=== PATIENT | female | born 1945 | race Caucasian/White ===

== ENCOUNTER → 2017-04-15 | Outpatient (CLI) | payer OTHER, MEDICARE ==
--- NOTE | 2017-04-15 10:54 | EKG ---
[address] [address] Measurements Intervals [place] Rate: 59 P: 66 [place]: 160 QRS: -17 QRSD: 101 T: 60 QT: 424 QTc: 424 Interpretive Statements SINUS RHYTHM No previous ECG available for comparison Electronically Signed On 04-15-17 16:09:24 MDT by Deacon Manrique [email or web address]
[2017-04-15 11:22] LABS: MEAN CORPUSCULAR VOLUME 89.3 FL (81-99)
[2017-04-15 11:28] LABS: BASOPHILS # (AUTO) 0.14 10*3/UL; EOSINOPHILS # (AUTO) 0.07 10*3/UL; HEMATOCRIT 45.7 % (37.0-47.0); HEMOGLOBIN 15.5 g/dL (12.0-16.0); LYMPHOCYTES # (AUTO) 2.79 10*3/uL; MEAN CORPUSCULAR HEMOGLOBIN 30.3 PG (27-31); MEAN CORPUSCULAR HGB CONC 33.9 g/dL (33-37); MONOCYTES # (AUTO) 0.31 10*3/UL (0.3-0.8); MONOCYTES % (AUTO) 4.4 % (5-15); NEUTROPHILS # (AUTO) 3.69 10*3/UL; NEUTROPHILS % (AUTO) 52.7 % (50-80); PLATELET MORPHOLOGY COMMENT NORMAL MORPHOLOGY (NORM); RBC MORPHOLOGY COMMENT NORMAL MORPHOLOGY (NORM); RED BLOOD COUNT 5.12 10^6/uL (4.20-5.40); WBC MORPHOLOGY COMMENT NORMAL MORPHOLOGY (NORM)
--- NOTE | 2017-04-15 11:31 | DI ---
PA /LATERAL CHEST X-RAY, 04/15/2017 10:38 AM : Clinical History: Status post fall Previous Exam: None at this facility. There is no acute soft tissue or bony abnormality. Heart size is normal. Lungs are clear. Mediastinal structures are normal. There are no pulmonary nodules. IMPRESSION: Normal chest x-ray.
[2017-04-15 11:34] LABS: BLOOD UREA NITROGEN 24 mg/dL (7-22); BUN/CREATININE RATIO 26.66 (6-20); CALCIUM 9.5 mg/dL (8.7-10.7); EST GLOMERULAR FILTRATION > 60 (>60 ml/min/1.73m(2)); LIPASE 117 IU/L (23-300); SERUM ALBUMIN 4.3 g/dL (3.5-4.8)
[2017-04-15 11:46] LABS: CREATINE KINASE MB 1.95 NG/ML (0.00-5.00)
[2017-04-15 11:48] LABS: TROPONIN I < 0.012 ng/mL (< 0.040)
[2017-04-15 11:51] LABS: FREE T4 (FREE THYROXINE) 1.07 ng/dL (0.93-1.71)
== END ==
LOC: MOB RAD 10:40
PROVIDERS: ATTEND Physician Assistant
DX: R42 Dizziness and giddiness (principal); R31.9 Hematuria, unspecified; M79.1 Myalgia; G47.62 Sleep related leg cramps; R11.0 Nausea; W18.30XA Fall on same level, unspecified, initial encounter
CPT/HCPCS: 36415; 71020; 80053; 81002; 82553; 83690; 84439; 84443; 84484; 85025; 87088; 93005; 93010; 99213; G0463

== ENCOUNTER 2017-05-09 12:35 | Emergency (ER) | payer OTHER, MEDICARE ==
[2017-05-09] MEDS ORDERED: MORPHINE SULFATE 2 MG/1 ML IVP ONE (12:53)
[2017-05-09] MEDS ORDERED: NORMAL SALINE 10 ML SYRINGE FLUSH IVP PRN (12:53)
[2017-05-09] MEDS ORDERED: Sodium Chloride 0.9% 1,000 ML PRIMARY IV ONE (12:53)
[2017-05-09] MEDS ORDERED: ETOMIDATE 2 MG/1 ML - 20 ML IVP ONE ×2 (13:05→13:13)
[2017-05-09 13:17] VITALS: TEMP 97.4
[2017-05-09 13:32] VITALS: RESP 14
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
--- NOTE | 2017-05-09 17:25 | DI ---
AP CHEST X-RAY, 05/09/2017 1:21 PM : Clinical History: Fall with shoulder dislocation. Previous Exam: 04/15/2017. There is no acute soft tissue or bony abnormality. No shoulder dislocation is seen on this film. Hear t size is normal. There is no acute infiltrate or effusion. There is a 10 mm nodular density between the anterior aspect of the right first and second ribs in the mid clavicular line. This is presumably an artifact since the examination obtained 3 weeks earlier shows no such lesion. Mediastinal structu res are normal. There are no other pulmonary nodules. Reading: Normal chest x-ray. The 10 mm density in the right apex is felt to represent an artifact.
--- NOTE | 2017-05-09 17:27 | DI ---
LEFT SHOULDER, 05/09/2017 12:53 PM: Clinical History: Injury. The patient fell. Previous Exam: None at this facility. 2 views are submitted. There is an anterior subglenoid dislocation of the humeral head. No fracture i s identified. The left apex and the visualized portions of the left lung are normal. Reading: Anterior dislocation of the shoulder without evidence of a fracture.
--- NOTE | 2017-05-09 17:32 | DI ---
LEFT SHOULDER, 05/09/2017 1:20 PM: Clinical History: Post reduction views following reduction of the dislocated shoulder. Previous Exam: Earlier today at 1307 hours. 2 views are submitted. There is no acute soft tissue, osseous, or joint abnormality. Reading: Normal left shoulder exam following reduction.
== END 2017-05-09 15:00 | disposition home or self-care (01) ==
LOC: ER 12:35
DX: S43.085A Other dislocation of left shoulder joint, initial encounter (principal); S20.212A Contusion of left front wall of thorax, initial encounter; W01.0XXA Fall on same level from slipping, tripping and stumbling without subsequent striking against object, initial encounter
CPT/HCPCS: 23655; 71010; 73030; 96374; 96375; 99282; J2270

== ENCOUNTER 2018-12-29 06:20 | Inpatient (IN) ==
[2018-12-29] MEDS ORDERED: Sodium Chloride 0.9% 1,000 ML PRIMARY IV ONE ×2 (06:27→06:44)
[2018-12-29] MEDS ORDERED: ASPIRIN 81 MG (BABY) CHEWABLE TABLET PO ONE ×2 (06:28→06:44)
[2018-12-29] MEDS ORDERED: ONDANSETRON 4 MG/2 ML VIAL IVP ONE (06:28)
[2018-12-29] MEDS ORDERED: MORPHINE SULFATE 4 MG/1 ML IVP ONE (06:44)
[2018-12-29] MEDS ORDERED: PANTOPRAZOLE IV 40 MG VIAL IVP ONE (06:44)
--- NOTE | 2018-12-29 06:46 | EKG ---
[address] [address] Measurements Intervals [place] Rate: 74 P: -5 [place]: 151 QRS: -2 QRSD: 103 T: 52 QT: 383 QTc: 411 Interpretive Statements SINUS RHYTHM INTERPRETATION BASED ON A DEFAULT AGE OF 40 YEARS Compared to ECG 04/15/2017 10:53:37 No significant changes Electronically Signed On 12-29-18 09:05:43 MST by Kevin Martin MD [id number]
[2018-12-29 06:52] LABS: BASOPHILS # (AUTO) 0.02 10*3/UL; BASOPHILS % (AUTO) 0.2 % (0-1); EOSINOPHILS # (AUTO) 0 10*3/UL; EOSINOPHILS % (AUTO) 0 % (0-8); Hematocrit [HCT] 40.3 % (37.0-47.0); MEAN CORPUSCULAR HEMOGLOBIN 31.3 PG (27-31); MEAN CORPUSCULAR HGB CONC 34.7 g/dL (33-37); MEAN CORPUSCULAR VOLUME 90.2 FL (81-99); MEAN PLATELET VOLUME 10.3 FL (7.4-12.2); MONOCYTES # (AUTO) 0.32 10*3/UL (0.3-0.8); MONOCYTES % (AUTO) 2.6 % (5-15); NEUTROPHILS # (AUTO) 10.99 10*3/UL; NEUTROPHILS % (AUTO) 88.2 % (50-80); RED BLOOD COUNT 4.47 10^6/uL (4.20-5.40)
[2018-12-29 07:04] LABS: BLOOD UREA NITROGEN 20 mg/dL (7-22); LIPASE 67 IU/L (23-300); SERUM ALBUMIN 4.3 g/dL (3.5-4.8)
[2018-12-29 07:07] LABS: PLATELET MORPHOLOGY COMMENT NORMAL MORPHOLOGY (NORM); RBC MORPHOLOGY COMMENT NORMAL MORPHOLOGY (NORM); WBC MORPHOLOGY COMMENT NORMAL MORPHOLOGY (NORM)
--- NOTE | 2018-12-29 08:05 | DI ---
XR CXR 1VW 12/29/2018 6:44 AM HISTORY: [facility] [facility] ^Chest Pain Comparison: 04/15/2017. Findings: A single portable frontal view of the chest is submitted. Images demonstrate normal aeration without focal consolidation. There is no large pneumothorax or ple ural effusion. The cardiomediastinal silhouette is within normal limits for technique. The osseous st ructures are grossly unremarkable. Impression: No radiographic evidence of acute cardiopulmonary disease.
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
--- NOTE | 2018-12-29 09:06 | DI ---
US Abdomen Limited 12/29/2018 7:37 AM History: [facility] [place] [facility] ^right upper and epigastric pain Comparison: None. Procedure: Phillips scale and color doppler right upper quadrant ultrasound. Findings: The liver is normal size with heterogeneously increased echogenicity. Focal fatty sparing i s noted adjacent to the gallbladder. There are no focal lesions visualized. There are multiple mobile echogenic shadowing stones in the gallbladder lumen. There is a normal gallbladder wall measuring 2 mm. No sonographic Acosta's sign is present. The common duct measures 5 mm. There is no intrahepatic biliary ductal dilatation. Imaged portions of the pancreas are grossly unremarkable. The right kidney measures 9.6 cm in length. No hydronephrosis, calculi, or masses are appreciated. There is no free fluid seen within the hepat orenal space. Imaged portions of the aorta and IVC are within normal limits. Impression: 1. Cholelithiasis without sonographic evidence of acute cholecystitis. 2. Hepatic steatosis with focal sparing adjacent to the gallbladder fossa.
[2018-12-29] MEDS ORDERED: CALCIUM CARBONATE 500 MG (TUMS) CHEWABLE TABLET PO PRN (09:36)
[2018-12-29] MEDS ORDERED: ONDANSETRON 4 MG/2 ML VIAL IVP PRN (09:36)
[2018-12-29] MEDS ORDERED: LIDOCAINE W/ SODIUM BICARB 0.5 ML SYR SUBD PRN (09:36)
[2018-12-29] MEDS ORDERED: NITROGLYCERIN 0.4 MG SL TAB (BOTTLE OF 3) SL PRN (09:36)
[2018-12-29] MEDS ORDERED: Influenza 18-19 Vaccine (6mo+) 60 MCG/0.5 ML SYRINGE IM ONE (09:44)
[2018-12-29 10:37] LABS: CHOL/HDL RATIO 3.21 RATIO (0-4.0)
[2018-12-29] MEDS: MORPHINE SULFATE 2 MG/1 ML IV PRN ×3 (11:39→20:48)
--- NOTE | 2018-12-29 13:54 | PDOC ---
HPI - History of Present Illness Date of Service: 12/29/18 Time of Service: 11:00 Chief Complaint: Epigastric pain History of Present Illness: This very pleasant 73-year-old female without prior past history other than remote breast cancer treated with surgical intervention, who comes in accompanied with her today complaining of epigastric pain that started 2 nights ago and has been somewhat constant, unremitting, and associated with nausea and vomiting. She described the pain as epigastric to lower substernal pain. She's never had anything like this happen before. She states it radiates through her back, but does not radiate out to the sides and no shoulder pain. She denies any fevers or chills. She states she started an exercise class II weeks ago. This pain is not associated with activities however. She did not notice any food associations. Her tells me that she's had worsened heartburn over the last 6 months for which he has been taking Tagamet frequently and recently switched to Tums gummy bears. She states that the Tums seems to be working better. She has never had an EGD or colonoscopy. She denies any weight loss, she denies any blood in the stool or black stools or tarry stools. She does not smoke. She does not have a family history of coronary artery disease. She does not have hypertension or hypercholesterolemia or diabetes to her knowledge. She states morphine in the emergency room was only thing that has made her pain better. She was found to have cholelithiasis on ultrasound. There was no evidence of cholecystitis. Past Medical History Medical History: 1. Breast cancer Surgical History: 1. Surgery for breast cancer. 2. Knee replacement Pertinent Family History: Significant for emphysema in her father. Past Social History: Does not smoke or drink alcohol. for 55 years. Has 2 children, described as healthy. Lives here in [place], [place]. Tobacco Use: Never Smoker In the Past 12 Months, Have Used or Abuse Any of the Following Substance: None Alcohol Use: None Medication / Allergies Home Medications: Home Medications 3 Medication Instructions Recorded Confirmed Type NK 12/29/18 12/29/18 History Allergies/Adverse Reactions: Allergies Allergy/AdvReac Type Severity Reaction Status Date / Time codeine Allergy NAUSEA Verified 12/29/18 06:23 Review of Systems - Review of Systems All Systems: Reviewed & No Additional Complaints Except as Stated (I did a 12 point review systems and it was negative other than that discussed below and in the history of present illness.) Exam - Vitals Vital Signs: Vital Signs Temperature 97.5 F Temperature Source Temporal Artery Scan Pulse Rate [Pulse Oximeter] 67 Pulse Rate [Telemetry] 78 Pulse Rate 71 Respiratory Rate 20 Blood Pressure [Right Arm] 141/70 Blood Pressure 106/66 Pulse Ox 93 Oxygen Flow Rate 2 Oxygen Delivery Method Nasal Cannula Height 5 ft 4 in Weight 215 lb 9.6 oz - General General Appearance: No Acute Distress, Cooperative - Head Head Exam: Normal Inspection, Normocephalic, Atraumatic - Eye Eye Exam: POSITIVE: No Scleral Icterus - ENT ENT Exam: POSITIVE: Mucous Membranes Moist - Neck Neck Exam: Normal Inspection, No Tenderness, No Lymphadenopathy, No Thyromegaly, JVP is not Raised - Respiratory Respiratory Exam: POSITIVE: Clear to Auscultation - Bilaterally, Breathing Non Labored, Normal to Percussion and Palpation - Cardiovascular Cardiovascular Exam: POSITIVE: RRR, No Murmur, No Clicks, No Gallops, No Rubs, No JVD - GI/Abdominal GI/Abdominal Exam: POSITIVE: Normal Bowel Sounds, Non Tender, Non Distended, Soft - Rectal Rectal Exam: POSITIVE: Deferred - External Exam: POSITIVE: Deferred Exam: POSITIVE: Deferred - Extremities Extremities Exam: POSITIVE: No Clubbing Present, No Edema Present, No Cyanosis Present - Back Back Exam: POSITIVE: Normal Inspection, No CVA Tenderness - Neurological Neurological Exam: POSITIVE: Alert, Oriented x 3, No Facial Droop, Speech Intact / Clear, Moves All Extremities Equally - Psychiatric Psychiatric Exam: POSITIVE: Normal Affect, Normal Mood - Integumentary Integumentary Exam: POSITIVE: Normal Color, Warm, Dry, Intact Results - Labs CBC and BMP: 12/29/18 06:48 12/29/18 06:48 Additional Lab Results: Laboratory Results 12/29/18 12/29/18 12/29/18 06:48 06:48 06:48 WBC 12.45 H RBC 4.47 Hgb 14.0 Hct 40.3 MCV 90.2 MCH 31.3 H MCHC 34.7 RDW Std Deviation 42.8 RDW Coeff of Korey 13.2 Plt Count 272 MPV 10.3 Immature Gran % (Auto) 0.2 Neut % (Auto) 88.2 H Lymph % (Auto) 8.8 L [place] % (Auto) 2.6 L Eos % (Auto) 0 Baso % (Auto) 0.2 Immature Gran # (Auto) 0.02 Neut # (Auto) 10.99 Lymph # (Auto) 1.10 [place] # (Auto) 0.32 Eos # (Auto) 0 Baso # (Auto) 0.02 WBC Morphology Comment Normal morphology Plt Morphology Comment Normal morphology RBC Morph Comment Normal morphology D-Dimer 1.17 H Sodium 137 Potassium 4.2 Chloride 102 Carbon Dioxide 26 Anion Gap 9 BUN 20 Creatinine 0.8 BUN/Creatinine Ratio 25.00 H Glucose 182 H Calculated Osmolality 291.0 Calcium 10.1 Total Bilirubin 1.3 H AST 33 ALT 38 Alkaline Phosphatase 107 CK-MB (CK-2) Troponin I Total Protein 7.7 Albumin 4.3 Globulin 3.4 Albumin/Globulin Ratio 1.20 L Triglycerides Cholesterol LDL Cholesterol, Calc VLDL Cholesterol HDL Cholesterol Cholesterol/HDL Ratio Amylase 38 Lipase 67 TSH Free T4 12/29/18 12/29/18 12/29/18 06:48 10:00 10:20 WBC RBC Hgb Hct MCV MCH MCHC RDW Std Deviation RDW Coeff of Korey Plt Count MPV Immature Gran % (Auto) Neut % (Auto) Lymph % (Auto) [place] % (Auto) Eos % (Auto) Baso % (Auto) Immature Gran # (Auto) Neut # (Auto) Lymph # (Auto) [place] # (Auto) Eos # (Auto) Baso # (Auto) WBC Morphology Comment Plt Morphology Comment RBC Morph Comment D-Dimer Sodium Potassium Chloride Carbon Dioxide Anion Gap BUN Creatinine BUN/Creatinine Ratio Glucose Calculated Osmolality Calcium Total Bilirubin AST ALT Alkaline Phosphatase CK-MB (CK-2) 1.49 Troponin I < 0.012 Total Protein Albumin Globulin Albumin/Globulin Ratio Triglycerides 62 Cholesterol 148 LDL Cholesterol, Calc 89.600 VLDL Cholesterol 12 HDL Cholesterol 46 Cholesterol/HDL Ratio 3.21 Amylase Lipase TSH 1.64 Free T4 1.31 12/29/18 10:20 WBC RBC Hgb Hct MCV MCH MCHC RDW Std Deviation RDW Coeff of Korey Plt Count MPV Immature Gran % (Auto) Neut % (Auto) Lymph % (Auto) [place] % (Auto) Eos % (Auto) Baso % (Auto) Immature Gran # (Auto) Neut # (Auto) Lymph # (Auto) [place] # (Auto) Eos # (Auto) Baso # (Auto) WBC Morphology Comment Plt Morphology Comment RBC Morph Comment D-Dimer Sodium Potassium Chloride Carbon Dioxide Anion Gap BUN Creatinine BUN/Creatinine Ratio Glucose Calculated Osmolality Calcium Total Bilirubin AST ALT Alkaline Phosphatase CK-MB (CK-2) Troponin I < 0.012 Total Protein Albumin Globulin Albumin/Globulin Ratio Triglycerides Cholesterol LDL Cholesterol, Calc VLDL Cholesterol HDL Cholesterol Cholesterol/HDL Ratio Amylase Lipase TSH Free T4 - EKG Data -: EKG Interpreted by Me - Imaging Status: Image Reviewed by Me (Chest x-ray is negative on my view for acute cardiopulmonary disease process.) Assessment and Plan - Patient Problems (1) Chest pain Current Visit: Yes Status: Acute Code(s): R07.9 - Chest pain, unspecified (2) Dyspepsia Current Visit: Yes Status: Acute Code(s): R10.13 - Epigastric pain (3) Cholelithiasis Current Visit: Yes Status: Acute Code(s): K80.20 - Calculus of gallbladder without cholecystitis without obstruction Qualifiers: Cholelithiasis location: gallbladder Cholecystitis presence: without cholecystitis Biliary obstruction: without biliary obstruction Qualified Code(s): K80.20 - Calculus of gallbladder without cholecystitis without obstruction (4) History of breast cancer Current Visit: No Status: Resolved Code(s): Z85.3 - Personal history of malignant neoplasm of breast - Assessment / Plan Additional Assessment/Plan Details: Plan: 1. Do serial enzymes and repeat EKG as necessary 2. Aspirin daily. Will dose of 81 mg by mouth daily 3. will consider beta gurinder if necessary. Right now I think she has elevated blood pressures without diagnosis of hypertension. 4. I do not think this is acute coronary syndrome, hold off on Lovenox. Patient is ambulatory 5. We'll have the patient do a stress test [chemical]--particularly being overweight with a BMI of 37 and with a prior knee replacement. 6. Proton pump inhibitor may be necessary and the patient would likely develop from future EGD and colonoscopy 5. Nitroglycerin when necessary for chest pain 6. Morphine if necessary via IV 7. Oxygen if necessary 8. I really think the clinical presentation is probably more specific to biliary dyskinesia. That being said, coronary artery disease is often atypical in women and with this being a lower substernal/epigastric pain, this could certainly be an atypical coronary artery disease presentation. I will check for other risk factors such as hypercholesterolemia and diabetes. In addition I will go ahead and try and arrange for further outpatient evaluation of dyspepsia. Unfortunately given gallstones, we will not be able to do a HIDA scan. With the presence of gallstones and dyspepsia symptoms, the patient may make a good candidate for elective cholecystectomy. In the meantime I'll get a CT scan of the abdomen and pelvis with contrast. Reassuring that lipase was negative. No obstructive labs noted. 9. I discussed the above plan with the patient and her and they agreed with the plan.
--- NOTE | 2018-12-29 16:22 | DI ---
CT Abdomen/Pelvis W Contrast 12/29/2018 3:00 PM History: [facility] [place] ^epigastric pain Comparison: Right upper quadrant ultrasound from earlier the same day. Technique: Imaging was performed with a multi-detector CT scanner. Data acquisition was obtained from the dome of the diaphragm through the pubic symphysis without oral contrast and after the uneventful administration of 75 mL of Isovue intravenous contrast material. Multiplanar reformations were perfo rmed. Findings: There are multiple gallstones in the hydropic gallbladder. There is moderate pericholecysti c fluid and fat stranding. Mild enhancement around the gallbladder fossa is noted. The lung bases are notable for bibasilar dependent atelectasis. Heart size is within normal limits wi thout pericardial effusion. There is diffuse hepatic steatosis without focal lesion. There is focal cortical thinning along the p osterior aspect of the interpolar region of the right kidney, a finding that can be seen in the setti ng of remote infection, inflammation, infarct, or trauma. There is normal CT appearance of the adrena l glands, spleen, left kidney, and pancreas. Hollow viscus organs demonstrate normal course and calib er. The appendix is unremarkable. There is colonic diverticulosis without CT evidence of acute divert iculitis. There is mild free pelvic fluid without intraperitoneal free air. No abdominopelvic lymphad enopathy is present. The uterus and adnexa are unremarkable, though better evaluated with pelvic ultr asound. Vascular structures are intact with atheromatous aortoiliac. There is a circumaortic left marla al vein. There is a subcentimeter fat containing umbilical hernia. The osseous structures are within normal limits for the patient's age. Impression: 1. Cholelithiasis with a hydropic gallbladder, as well as moderate pericholecystic fluid and fat stra nding. 2. Diffuse hepatic steatosis. 3. Colonic diverticulosis without CT evidence of acute diverticulitis.
[2018-12-30] MEDS: MORPHINE SULFATE 2 MG/1 ML IV PRN ×2 (04:31→13:49)
[2018-12-30 04:56] LABS: BASOPHILS # (AUTO) 0.03 10*3/UL; BASOPHILS % (AUTO) 0.2 % (0-1); EOSINOPHILS # (AUTO) 0.02 10*3/UL; EOSINOPHILS % (AUTO) 0.1 % (0-8); Hematocrit [HCT] 43.5 % (37.0-47.0); Hemoglobin [HGB] 14.4 g/dL (12.0-16.0); LYMPHOCYTES # (AUTO) 2.12 10*3/uL; MEAN CORPUSCULAR HEMOGLOBIN 29.9 PG (27-31); MEAN CORPUSCULAR HGB CONC 33.1 g/dL (33-37); MEAN CORPUSCULAR VOLUME 90.4 FL (81-99); MEAN PLATELET VOLUME 10.3 FL (7.4-12.2); MONOCYTES % (AUTO) 5.5 % (5-15); NEUTROPHILS # (AUTO) 14.91 10*3/UL; NEUTROPHILS % (AUTO) 82.3 % (50-80); RED BLOOD COUNT 4.81 10^6/uL (4.20-5.40)
[2018-12-30 05:16] LABS: BLOOD UREA NITROGEN 13 mg/dL (7-22); BUN/CREATININE RATIO 16.25 (6-20); SERUM ALBUMIN 3.5 g/dL (3.5-4.8)
[2018-12-30 05:38] LABS: HEMOGLOBIN A1C 5.33 % (4.2-6.0)
[2018-12-30 05:47] LABS: PLATELET MORPHOLOGY COMMENT NORMAL MORPHOLOGY (NORM); RBC MORPHOLOGY COMMENT NORMAL MORPHOLOGY (NORM); WBC MORPHOLOGY COMMENT NORMAL MORPHOLOGY (NORM)
--- NOTE | 2018-12-30 10:07 | STRESSTEST ---
[facility] [place] Interpretive Statements This is a 73 YO female with chest pain, no knonw risk factors. Atypical presentation. ruled out for HI. due to arthritis, weight, inability to run on treadmill, Makenna scan protocol done with resting images yesterday. Resting EKG is NSR to sinus tachycardia with sinus arrhythmia. Non-specific ST and T wave changes in a VL and inferior leads. With stress, occasional PVC. no reproducible symptoms. Plan: stress images later today. radiology to read. risk stratification based on results of stress test. [email or web address]
[2018-12-30 10:59] LABS: LIPASE 28 IU/L (23-300)
[2018-12-30] MEDS ORDERED: Ertapenem Inj 1 GM in Sodium Chloride 0.9% 100 ML IV SCH (11:00)
[2018-12-30] MEDS ORDERED: LIDOCAINE W/ SODIUM BICARB 0.5 ML SYR SUBD PRN (12:09)
[2018-12-30] MEDS ORDERED: Sodium Chloride 0.9% 1,000 ML PRIMARY IV SCH (12:15)
[2018-12-30] MEDS ORDERED: Nasal Sanitizer POPSWAB ampule 3 AMP (Nozin) PREOP DOSE ENOS SCH (12:15)
[2018-12-30] MEDS ORDERED: METOPROLOL TARTRATE 5 MG/5 ML VIAL IVP STA (12:32)
--- NOTE | 2018-12-30 13:32 | CONSULT ---
Consult Note - Consult Consult Date: 12/30/18 Reason for Consult: PreOp Consulation : General Surgery Requesting Physician: Dr. Morris Primary Care Provider: Frederic Beavers MD - History of Present Illness History of Present Illness: The patient is a healthy 73-year-old female I'm asked to see for cholecystitis and cholelithiasis. Patient reports a six-month history of increasing heartburn and indigestion. Approximately 2 days ago she developed significant substernal and epigastric pain which radiated through to her back. This was associated with nausea and vomiting. The pain went away after a couple hours. The day before yesterday it returned after a fatty meal. The pain persisted and she presented to the emergency room. The pain was in her epigastrium, substernal, radiating through to her back. It was thought this might be cardiac and she was admitted to the hospital. Troponins were negative. She is completing a cardiac stress test today. Ultrasound was done yesterday morning which shows a gallbladder with multiple stones. The wall is normal as is the common bile duct at 5 mm. Later in the day she had a CT scan of her abdomen which showed a hydropic gallbladder with thick wall and pericholecystic stranding consistent with acute cholecystitis. Reviewing this with the radiologist he felt she probably had some pericholecystic fluid earlier in the day. Her gallbladder is certainly more distended. Initially her white count was 12,500. Today it was 18,000. Initially her bilirubin was 1.3 and today it is 2.9. Her AST, ALT, alkaline phosphatase, and lipase have been normal. She reports persistent pain. It now radiates down her right side. She has no appetite. She has not vomited since admission to the hospital. She has remained afebrile. She appears icteric to myself and to her . Patient does report some postprandial bloating in the past. She's never had another attack of biliary colic. It is unknown to her whether there is a family history of gallbladder disease. Review of Systems - Gastrointestinal Gastrointestinal / Abdominal: REPORTS: Nausea, Vomiting, Abdominal Pain, Poor Appetite, Bloating, See HPI Past Medical History Medical History: 1. Breast cancer-treated with surgery. No chemotherapy or radiation therapy. Surgical History: 1. Surgery for breast cancer. 2. Knee replacement. 3. Surgery for right ankle fracture. 4. Surgery for fractured left humerus. Pertinent Family History: Significant for emphysema in her father. Past Social History: Does not smoke or drink alcohol. for 55 years. Has 2 children, described as healthy. Lives here in [place], [place]. Tobacco Use: Never Smoker In the Past 12 Months, Have Used or Abuse Any of the Following Substance: None Alcohol Use: None Medication / Allergies Home Medications: Home Medications Medication Instructions Recorded Confirmed Type Cholecalciferol [Vitamin D3] 1 tab PO DAILY 12/30/18 12/30/18 History Ibuprofen 2 - 4 tab PO DAILY PRN 12/30/18 12/30/18 History Multivitamin [Once Daily] 1 tab PO DAILY 12/30/18 12/30/18 History [place]-3 Fatty Acids/Fish Oil [Fish 1 cap PO DAILY 12/30/18 12/30/18 History Oil 1,000 mg Capsule] Allergies/Adverse Reactions: Allergies Allergy/AdvReac Type Severity Reaction Status Date / Time codeine Allergy NAUSEA Verified 12/30/18 06:45 Results - Labs CBC and BMP: 12/30/18 04:41 12/30/18 04:41 - Imaging Status: Image Reviewed by Me (And discussed with the radiologist.), Report Reviewed by Me Exam - Vitals Vital Signs: Vital Signs Temperature 98.6 F Temperature Source Temporal Artery Scan Pulse Rate [Pulse Oximeter] 100 Pulse Rate [Telemetry] 78 Pulse Rate 82 Respiratory Rate 18 Blood Pressure [Right Arm] 149/78 Blood Pressure 106/66 Pulse Ox 95 Oxygen Flow Rate 2 Oxygen Delivery Method Nasal Cannula Height 5 ft 4 in Weight 213 lb 6.4 oz - General General Appearance: Cooperative, Mild Distress, Obese Additional General Exam Details: Icteric. - Eye Eye Exam: POSITIVE: Scleral Icterus - Respiratory Respiratory Exam: POSITIVE: Clear to Auscultation - Bilaterally, Breathing Non Labored - Cardiovascular Cardiovascular Exam: POSITIVE: Tachycardia (Heart rate is regular. Mildly tachycardic.) - GI/Abdominal GI/Abdominal Exam: POSITIVE: Guarding (Epigastrium and right upper quadrant.), No Masses, Positive for RUQ Pain Additional GI/Abdominal Exam Details: There is epigastric and right upper quadrant abdominal pain and tenderness with voluntary guarding. No peritoneal signs. Bowel tones are hypoactive. - Rectal Rectal Exam: POSITIVE: Deferred - Neurological Neurological Exam: POSITIVE: Alert, Oriented x 3 - Psychiatric Psychiatric Exam: POSITIVE: Normal Affect, Normal Mood Assessment and Plan - Patient Problems (1) Cholelithiasis and acute cholecystitis without obstruction Current Visit: Yes Status: Acute Priority: High Comment: The patient has acute cholecystitis and cholelithiasis. We will start IV fluids and antibiotics. She has a stress test pending later today. We will not know the results until this evening. We will plan to proceed with laparoscopic cholecystectomy with intraoperative cholangiogram tomorrow if her stress test is okay. If not she will likely be transferred to a larger facility. She has lab work pending in the morning. The procedure has been discussed with the patient and her in complete yet simple terms including benefits, risks, and alternatives. All questions have been answered. Informed consent has been obtained. I have told her there is a higher incidence than normal for an open procedure. She accepts all of the above. Code(s): K80.00 - Calculus of gallbladder with acute cholecystitis without obstruction
--- NOTE | 2018-12-30 13:49 | EKG ---
[address] [address] Measurements Intervals Harold Rate: 99 P: 63 ND: 140 QRS: -29 QRSD: 101 T: 51 QT: 318 QTc: 374 Interpretive Statements SINUS RHYTHM WITH SINUS ARRHYTHMIA AND OCCASSIONAL ATRIAL PREMATURE BEATS BORDERLINE LEFT AXIS DEVIATION [QRS AXIS < -20] Compared to ECG 12/29/2018 06:25:28 No significant changes Electronically Signed On 12-30-18 16:18:37 MST by Deacon Manrique [id number]
--- NOTE | 2018-12-30 14:30 | DI ---
2 DAY LEXISCAN STRESS & REST MYOCARDIAL PERFUSION SCANS, 12/29/2018 9:36 AM : History[place] [facility] [place] ^chest pain Comparison: CT abdomen/pelvis 12/29/2018. The patient was stressed by Dr. Morris. The standard Lexiscan protocol was used. Please see the Doctor's report. Stress scans were performed on 12/30/2018; the resting scans were performed on 12/29/2018. At the designated time following commencement of stress testing, 36.6 mCi of Tc-99m Sestamibi was inj ected IV. Stress gated tomograms were acquired within one hour of the injection. For the resting scans, 35.0 mCi was injected IV and resting gated tomograms were acquired in a simila r fashion. Quantitative and qualitative analyses were performed. Quantitative analysis was performed with the [place] [facility] [id number] protocols. Very low dose limited CT scans of the chest are o btained through the level of the heart for attenuation correction of the stress and rest cardiac SPEC T data. Attenuation corrected and non-attenuation corrected scans were processed for review, and the attenuation corrected scans were used for final interpretation of this study. Gating information reveals 78% accepted beats with stress imaging and 100% accepted beats with rest i maging. There is no significant breast attenuation. There is no significant diaphragmatic attenuation . There is significant gut cross talk. There is a small, mild reversible defect of the distal anteroseptal wall near the apex. There is a mo derate size, mild severity partially reversible defect in the lateral wall near the base of the heart . Summed Stress Score (SSS) is 3 and Summed Difference Score (SDS) is 2. There is normal wall motion. There is no significant wall thickening. Stress and rest left ventricular ejection fraction (LVEF) a re 74 % and 86 %, respectively. Transient ischemic dilatation ratio (TID) is 0.98, with a normal rang e up to 1.2 for patients stressed with the Ziyad protocol and up to 1.4 for patients stressed with th e Lexiscan protocol. The very low dose CT scans through the level of the heart show faint atheromatous calcifications in t he distribution of the left main, left anterior descending, and left circumflex coronary arteries. Th ere is no adenopathy. Heart size is normal without pericardial effusion. The lungs are clear. There i s no pulmonary nodule. There is diffuse hepatic steatosis. Inflammatory changes are noted in the capt ured gallbladder fossa and tracy hepatis. There are degenerative changes of the spine without aggress lester osseous lesion. Impression: 1. There is a small, mild reversible defect in the distal anteroseptal wall near the apex. There is a moderate size, mild severity partially reversible defect in the lateral wall near the base of the he art. Although this could represent artifact, atheromatous calcifications are noted within the left ma in, left anterior descending, and left circumflex coronary arteries. Additionally, there is "gut cros stalk", possibly related to the patient's acute cholecystitis, which could obscure ischemia/infarct i n the inferior wall. 2. Normal wall motion on stress and rest. 3. Stress and rest LVEF are 74 % and 86 %, respectively. 4. TID ratio is 0.98.
--- NOTE | 2018-12-30 16:48 | DCSUMMARY ---
Hospitalization Summary Admit Date: 12/29/2017 Discharge Date: 12/30/18 Primary Diagnosis:: abnormal stress test, cholecystitis, cholelithiasis Hospital Course: As very pleasant 73-year-old female who had a remote history of breast cancer treated with surgery only, who comes in stating that she had some substernal chest pain in the epigastric area and lower substernal region. That had been going on and was associated with nausea and vomiting as well. She was admitted with the exception that this could be an atypical presentation of coronary artery disease and known cholelithiasis on ultrasound of the gallbladder. The story on admission sounded somewhat suspicious for biliary dyskinesia, and a CT scan of the abdomen and pelvis showed hydrops gallbladder with pericholecystic inflammation. Surgery was consulted and felt that this was acute cholecystitis with cholelithiasis. The patient was placed on antibiotics. Patient was placed on the surgery schedule for tomorrow as it is no evidence of any pancreatitis. However, the Lexiscan stress test came back positive for reversible defects in 2 areas, and given that we do not have a dumper bulk system here, I feel that the best thing for the patient is to have them evaluated in a place with a dumper bulk system in case heart catheterization needs to proceed prior to cholecystectomy. It would also be advantageous to have the patient in a facility that could perform a gallbladder IR directed drainage in the setting of inability to do cholecystectomy. I spoke to [facility] regarding the patient's situation as the local hospitals in terms of referral centers here were on divert, and I was able to have the patient accepted there for care. I graciously think the hospitalist service for helping us arrange this patient's care there. In addition and one especially thank Dr. Scott for his braces this to consult on the patient as well. I spoke to the patient regarding the circumstances, and she agreed to the transfer. I think her condition has been stabilized as such that she is stable for discharge. Of course based on her condition, she could deteriorate further. But I think she has maximized the best of her ability. I will note that we have seen some intermittent tachyarrhythmias but have not been able to isolate on rhythm strips or EKG a definitive diagnosis of atrial fibrillation. Currently, the patient complains mostly of right-sided sharp pain, nausea, decreased appetite, no chest pains. But she does have an exertional dyspnea component noted at home, and the patient in particular seems to get short of breath with activity such as walking up the stairs. Assessment and Plan: 1. As per discharge assessments noted 2. Disposition: Patient is discharged to [facility] 3. Condition on discharge, stable, to the best of our ability, but could deteriorate based on conditions involved. 4. Diet: We have her on clear liquids at this time 5. Activities: As per physician's at [facility] 6. Follow-Up: 1. See Dr. Diaz 7 days post discharge 7. Medications at the Time of Discharge: Active Medications Generic Name Dose Route Start Last Admin Trade Name Freq PRN Reason Stop Dose Admin Calcium Carbonate 1 - 2 tab 12/29/18 09:36 Tums PO QID PRN Heartburn Sodium Chloride 25 mls @ 200 mls/hr 12/29/18 09:36 Normal Saline 0.9% IV .Post Infusion PRN Flush Ertapenem 1 gm/ Sodium 100 mls @ 200 mls/hr 12/30/18 11:00 12/30/18 15:07 Chloride IV 200 mls/hr Q24H GISELLE Administration Lactated Ringer's 1,000 mls @ 100 mls/hr 12/31/18 08:00 Lr PRIMARY IV .Q10H GISELLE Sodium Chloride 1,000 mls @ 125 mls/hr 12/30/18 12:15 12/30/18 15:07 Normal Saline PRIMARY IV 125 mls/hr .Q8H GISELLE Administration Lidocaine HCl 0.5 ml 12/29/18 09:36 Lidocaine Buffered Inj SUBD ONCE PRN IV Starts Lidocaine HCl 0.5 ml 12/30/18 12:09 Lidocaine Buffered Inj SUBD ONCE PRN IV Starts Morphine Sulfate 2 mg 12/29/18 09:36 12/30/18 13:49 Morphine Inj IV 2 mg Q4H PRN Administration Pain Nitroglycerin 1 tab 12/29/18 09:36 Nitrostat Sl 0.4mg Tab SL Q5M PRN Chest Pain Ondansetron HCl 4 mg 12/29/18 09:36 Zofran Inj IVP Q4H PRN NAUSEA / VOMITING 8. Time, care, counseling and coordination of care for this discharge is greater than 30 minutes. Exam - Vitals Vital Signs: Vital Signs Temperature 98.6 F Temperature Source Temporal Artery Scan Pulse Rate [Pulse Oximeter] 100 Pulse Rate [Telemetry] 78 Pulse Rate 92 Respiratory Rate 18 Blood Pressure [Right Arm] 149/78 Blood Pressure 106/66 Pulse Ox 97 Oxygen Flow Rate 1 Oxygen Delivery Method Nasal Cannula Height 5 ft 4 in Weight 213 lb 6.4 oz - General General Appearance: No Acute Distress, Cooperative - Eye Eye Exam: POSITIVE: Scleral Icterus (Scleral icterus has developed through the day.) - ENT ENT Exam: POSITIVE: Mucous Membranes Moist - Neck Neck Exam: JVP is not Raised - Respiratory Respiratory Exam: POSITIVE: Clear to Auscultation - Bilaterally, Breathing Non Labored - Cardiovascular Cardiovascular Exam: POSITIVE: No Murmur, No Clicks, No Gallops, No Rubs, Tachycardia - GI/Abdominal GI/Abdominal Exam: POSITIVE: Normal Bowel Sounds, Non Distended, Soft Additional GI/Abdominal Exam Details: Tender right upper quadrant - Extremities Extremities Exam: POSITIVE: No Clubbing Present, No Edema Present, No Cyanosis Present - Neurological Neurological Exam: POSITIVE: Alert, Oriented x 3, No Facial Droop, Speech Intact / Clear, Moves All Extremities Equally - Psychiatric Psychiatric Exam: POSITIVE: Normal Affect, Normal Mood Data Peritnent Studies: 12/29/18 12/29/18 12/29/18 06:48 06:48 06:48 WBC 12.45 H Hgb Hct Plt Count Neut % (Auto) PT INR Sodium Potassium Chloride Carbon Dioxide Anion Gap BUN Creatinine BUN/Creatinine Ratio Glucose Mean Blood Glucose Hemoglobin A1c Calculated Osmolality Calcium Total Bilirubin 1.3 H AST ALT Alkaline Phosphatase Troponin I < 0.012 Total Protein Albumin Globulin Albumin/Globulin Ratio Amylase Lipase TSH Free T4 12/29/18 12/29/18 12/29/18 10:20 10:20 16:50 WBC Hgb Hct Plt Count Neut % (Auto) PT INR Sodium Potassium Chloride Carbon Dioxide Anion Gap BUN Creatinine BUN/Creatinine Ratio Glucose Mean Blood Glucose Hemoglobin A1c Calculated Osmolality Calcium Total Bilirubin AST ALT Alkaline Phosphatase Troponin I < 0.012 < 0.012 Total Protein Albumin Globulin Albumin/Globulin Ratio Amylase Lipase TSH 1.64 Free T4 1.31 12/30/18 12/30/18 12/30/18 04:41 04:41 04:41 WBC 18.12 H Hgb 14.4 Hct 43.5 Plt Count 325 Neut % (Auto) 82.3 H PT INR Sodium 136 Potassium 4.5 Chloride 102 Carbon Dioxide 27 Anion Gap 7 BUN 13 Creatinine 0.8 BUN/Creatinine Ratio 16.25 Glucose 154 H Mean Blood Glucose 91.489 Hemoglobin A1c 5.33 Calculated Osmolality 284.0 Calcium 9.1 Total Bilirubin 2.9 H D AST 37 ALT 52 Alkaline Phosphatase 97 Troponin I Total Protein 6.4 Albumin 3.5 Globulin 2.9 Albumin/Globulin Ratio 1.20 L Amylase Lipase TSH Free T4 12/30/18 12/30/18 10:47 10:47 WBC Hgb Hct Plt Count Neut % (Auto) PT 11.0 INR 1.08 Sodium Potassium Chloride Carbon Dioxide Anion Gap BUN Creatinine BUN/Creatinine Ratio Glucose Mean Blood Glucose Hemoglobin A1c Calculated Osmolality Calcium Total Bilirubin AST ALT Alkaline Phosphatase Troponin I Total Protein Albumin Globulin Albumin/Globulin Ratio Amylase < 30 L Lipase 28 TSH Free T4 Procedures: [address] [facility] [place] [address] PH: DD: [phone] FAX: [phone] ~DIAGNOSTIC IMAGING REPORT~ Patient: Kayla Mujica : 1945 Sex: F Age: 73 Exam Name: CT Abdomen/Pelvis W Contrast Exam Date: 12/29/18 Report # : [id number] CPT Code: 23823 EMR/MR #: [id number] Ordering: KASHIF ANTON Admiting: KASHIF ANTON DO Primary: Frederic Beavers MD. Attending: KASHIF ANTON DO Signed CT Abdomen/Pelvis W Contrast 12/29/2018 3:00 PM [place] [facility]epigastric pain Comparison: Right upper quadrant ultrasound from earlier the same day. Technique: Imaging was performed with a multi-detector CT scanner. Data acquisition was obtained from the dome of the diaphragm through the pubic symphysis without oral contrast and after the uneventful administration of 75 mL of Isovue intravenous contrast material. Multiplanar reformations were performed. Findings: There are multiple gallstones in the hydropic gallbladder. There is moderate pericholecystic fluid and fat stranding. Mild enhancement around the gallbladder fossa is noted. The lung bases are notable for bibasilar dependent atelectasis. Heart size is within normal limits without pericardial effusion. There is diffuse hepatic steatosis without focal lesion. There is focal cortical thinning along the posterior aspect of the interpolar region of the right kidney, a finding that can be seen in the setting of remote infection, inf lammation, infarct, or trauma. There is normal CT appearance of the adrenal glands, spleen, left kidney, and pancreas. Hollow viscus organs demonstrate normal course and caliber. The appendix is unremarkable. There is colonic diverticulosis without CT evidence of acute diverticulitis. There is mild free pelvic fluid without intraperitoneal free air. No abdominopelvic lymphadenopathy is present. The uterus and adnexa are unremarkable, though better evaluated with pelvic ultrasound. Vascular structures are intact with atheromatous aortoiliac. There is a circumaortic left renal vein. There is a subcentimeter fat containing umbilical hernia. The osseous structures are within normal limits for the patient's age. Impression: 1. Cholelithiasis with a hydropic gallbladder, as well as moderate pericholecystic fluid and fat stranding. 2. Diffuse hepatic steatosis. 3. Colonic diverticulosis without CT evidence of acute diverticulitis. Dictated By: 12/29/18 1607 GEMA MONAE MD. Signed By: 12/29/18 0427 GEMA MONAE MD. [address] [facility] [place] [address] PH: DD: [phone] FAX: [phone] ~DIAGNOSTIC IMAGING REPORT~ Patient: Kayla Mujica : 1945 Sex: F Age: 73 Exam Name: NM Myocardial Multi-Spect Exam Date: 12/29/18 Report # : [id number] CPT Code: 63178 EMR/MR #: [id number] Ordering: KASHIF ANTON Admiting: KASHIF ANTON DO Primary: Frederic Beavers MD. Attending: KASHIF ANTON DO Signed 2 DAY LEXISCAN STRESS & REST MYOCARDIAL PERFUSION SCANS, 12/29/2018 9:36 AM : History: [facility] [facility] ^chest pain Comparison: CT abdomen/pelvis 12/29/2018. The patient was stressed by Dr. Anton. The standard Lexiscan protocol was used. Please see the Doctor's report. Stress scans were performed on 12/30/2018; the resting scans were performed on 12/29/2018. At the designated time following commencement of stress testing, 36.6 mCi of Tc- 99m Sestamibi was injected IV. Stress gated tomograms were acquired within one hour of the injection. For the resting scans, 35.0 mCi was injected IV and resting gated tomograms were acquired in a similar fashion. Quantitative and qualitative analyses were performed. Quantitative analysis was performed with the [facility] [id number] protocols. Very low dose limited CT scans of the chest are obtained through the level of the heart for attenuation correction of the stress and rest cardiac SPECT data. Attenuation corrected and non-attenuation corrected scans were processed for review, and the attenuation corrected scans were used for final interpretation of this study. Gating information reveals 78% accepted beats with stress imaging and 100% accepted beats with rest imaging. There is no significant breast attenuation. There is no significant diaphragmatic attenuation. There is significant gut cross talk. There is a small, mild reversible defect of the distal anteroseptal wall near the apex. There is a moderate size, mild severity partially reversible defect in the lateral wall near the base of the heart. Summed Stress Score (SSS) is 3 and Summed Difference Score (SDS) is 2. There is normal wall motion. There is no significant wall thickening. Stress and rest left ventricular ejection fraction (LVEF) are 74 % and 86 %, respectively. Transient ischemic dilatation ratio (TID) is 0.98, with a normal range up to 1.2 for patients stressed with the Ziyad protocol and up to 1.4 for patients stressed with the Lexiscan protocol. The very low dose CT scans through the level of the heart show faint atheromatous calcifications in the distribution of the left main, left anterior descending, and left circumflex coronary arteries. There is no adenopathy. Heart size is normal without pericardial effusion. The lungs are clear. There is no pulmonary nodule. There is diffuse hepatic steatosis. Inflammatory changes are noted in the captured gallbladder fossa and tracy hepatis. There are degenerative changes of the spine without aggressive osseous lesion. Impression: 1. There is a small, mild reversible defect in the distal anteroseptal wall near the apex. There is a moderate size, mild severity partially reversible defect in the lateral wall near the base of the heart. Although this could represent artifact, atheromatous calcifications are noted within the left main, left anterior descending, and left circumflex coronary arteries. Additionally, there is "gut crosstalk", possibly related to the patient's acute cholecystitis, which could obscure ischemia/infarct in the inferior wall. 2. Normal wall motion on stress and rest. 3. Stress and rest LVEF are 74 % and 86 %, respectively. 4. TID ratio is 0.98. Dictated By: 12/30/18 1404 GEMA MONAE MD. Signed By: 12/30/18 3519 GEMA MONAE MD. [address] [facility] [place] [address] PH: DD: [phone] FAX: [phone] ~DIAGNOSTIC IMAGING REPORT~ Patient: Kayla Mujica : 1945 Sex: F Age: 73 Exam Name: US Abdomen Limited Exam Date: 12/29/18 Report # : [id number] CPT Code: 90356 EMR/MR #: [id number] Ordering: REED MORALES Admiting: KASHIF ANTON DO Primary: Frederic Beavers MD. Attending: KASHIF ANTON DO Signed US Abdomen Limited 12/29/2018 7:37 AM History: [facility] [facility] ^right upper and epigastric pain Comparison: None. Procedure: Phillips scale and color doppler right upper quadrant ultrasound. Findings: The liver is normal size with heterogeneously increased echogenicity. Focal fatty sparing is noted adjacent to the gallbladder. There are no focal lesions visualized. There are multiple mobile echogenic shadowing stones in the gallbladder lumen. There is a normal gallbladder wall measuring 2 mm. No sonographic Acosta's sign is present. The common duct measures 5 mm. There is no intrahepatic biliary ductal dilatation. Imaged portions of the pancreas are grossly unremarkable. The right kidney measures 9.6 cm in length. No hydronephrosis, calculi, or masses are appreciated. There is no free fluid seen within the hepatorenal space. Imaged portions of the aorta and IVC are within normal limits. Impression: 1. Cholelithiasis without sonographic evidence of acute cholecystitis. 2. Hepatic steatosis with focal sparing adjacent to the gallbladder fossa. Dictated By: 12/29/18 0859 GEMA MONAE MD. Signed By: 12/29/18 0906 GEMA MONAE MD. [address] [facility] [place] [address] PH: DD: [phone] FAX: [phone] ~DIAGNOSTIC IMAGING REPORT~ Patient: Kayla Mujica : 1945 Sex: F Age: 73 Exam Name: XR CXR 1VW Exam Date: 12/29/18 Report # : [id number] CPT Code: 55312 EMR/MR #: [id number] Ordering: REED MORALES Admiting: Primary: Frederic Beavers MD. Attending: Signed XR CXR 1VW 12/29/2018 6:44 AM HISTORY: [facility] ^Chest Pain Comparison: 04/15/2017. Findings: A single portable frontal view of the chest is submitted. Images demonstrate normal aeration without focal consolidation. There is no large pneumothorax or pleural effusion. The cardiomediastinal silhouette is within normal limits for technique. The osseous structures are grossly unre markable. Impression: No radiographic evidence of acute cardiopulmonary disease. Dictated By: 12/29/18 0759 GEMA MONAE MD. Signed By: 12/29/18 0805 GEMA MONAE MD. Patient Problems - Patient Problem List (1) Abnormal nuclear stress test Current Visit: Yes Status: Acute Code(s): R94.39 - Abnormal result of other cardiovascular function study Category: Medical (2) Cholelithiasis and acute cholecystitis without obstruction Current Visit: Yes Status: Acute Priority: High Code(s): K80.00 - Calculus of gallbladder with acute cholecystitis without obstruction Category: Medical (3) Dyspepsia Current Visit: Yes Status: Acute Code(s): R10.13 - Epigastric pain Category: Medical (4) Cholelithiasis Current Visit: Yes Status: Acute Code(s): K80.20 - Calculus of gallbladder without cholecystitis without obstruction Qualifiers: Cholelithiasis location: gallbladder Cholecystitis presence: without cholecystitis Biliary obstruction: without biliary obstruction Qualified Code(s): K80.20 - Calculus of gallbladder without cholecystitis without obstruction Category: Medical (5) History of breast cancer Current Visit: No Status: Resolved Code(s): Z85.3 - Personal history of malignant neoplasm of breast Category: Medical (6) Chest pain Current Visit: Yes Status: Acute Code(s): R07.9 - Chest pain, unspecified Category: Medical
[2018-12-30 17:05] VITALS: BP 113/49; RESP 20; TEMP 99.3; O2SAT 96
[2018-12-31] MEDS ORDERED: Lactated Ringers 1,000 ML PRIMARY IV SCH (08:00)
== END 2018-12-30 16:30 | disposition short-term general hospital (02) | DRG 446 ==
LOC: MED/SURG 06:20 → ER 06:20 → MED/SURG 09:05
PROVIDERS: ADMIT Family Medicine; ATTEND Family Medicine